=== PATIENT | male | born 1990 | race Caucasian/White ===

== ENCOUNTER 2023-06-14 17:05 | Emergency (ER) | payer SELFPAY ==
[2023-06-14] MEDS: KETOROLAC 60MG/2ML VIAL IM ONE (18:00)
[2023-06-14] MEDS ORDERED: NAPR500T7 MT (18:25)
[2023-06-14] MEDS ORDERED: MENT1ADH19 TP (18:25)
[2023-06-14] MEDS ORDERED: TOPUD PO (18:25)
[2023-06-14 18:41] VITALS: BP 133/94; PULSE 88; RESP 17; TEMP 98.2
== END 2023-06-14 19:09 | disposition home or self-care (01) ==
LOC: ER 17:05
DX: M54.50 Low back pain, unspecified (principal)
CPT/HCPCS: 72100; 96372; 99283; J1885; Z7610